=== PATIENT | male | born 1945 | race Caucasian/White ===

== ENCOUNTER 2019-04-26 | Day surgery (SDC) | payer OTHER | END 2019-04-26 12:03 | disposition home or self-care (01) | PROC: 0DJD8ZZ Inspection of Lower Intestinal Tract, Via Natural or Artificial Opening Endoscopic (ICD-10-PCS; principal; 2019-04-26) | DX: Z12.11 Encounter for screening for malignant neoplasm of colon (principal); K64.8 Other hemorrhoids; I10 Essential (primary) hypertension; Z86.010 Personal history of colon polyps; F17.290 Nicotine dependence, other tobacco product, uncomplicated | CPT/HCPCS: 45378; J3010; J7120 ==

== ENCOUNTER 2019-10-22 09:55 | Outpatient (CLI) | payer OTHER ==
--- NOTE | 2019-10-23 09:10 | CT Report ---
Reason: PERSONAL HISTORY NICOTINE DEPENDENCE Procedure Date: 10/22/2019 Accession Number: [id number] / [id number] Procedure: CT - CHEST WO CPT Code: Final Report FULL RESULT: EXAM CT LUNG SCREEN EXAM DATE: 10/22/2019 10:24 AM. HISTORY: 74-year-old patient with [id number] smoking history. Currently smoking: No. Years since quitting: Less than 1. COMPARISON: None. TECHNIQUE: CT examination of the entire thorax without contrast was performed. Thin section coronal, axial, sagittal and MIP axial images were obtained. In accordance with CT protocol optimization, one or more of the following dose reduction techniques were utilized for this exam: automated exposure control, adjustment of mA and/or KV based on patient size, or use of iterative reconstructive technique. FINDINGS: Nodules: Right upper lobe: None. Right middle lobe: None. Right lower lobe: 3 mm nodule image 174 series 4. Left upper lobe: None. Left lower lobe: 3 mm nodule image 179. Emphysema: No significant emphysema. Pleura: Unremarkable. Aorta: Mildly calcified. Mediastinum: Unremarkable. Coronary calcifications: Mild. Other pulmonary findings: Bilateral lower lobe predominant bronchiectasis with associated linear consolidative changes, scarring favored, less likely subsegmental atelectasis. Other extrapulmonary findings: Right renal cyst. IMPRESSION: Lung-RADS ASSESSMENT CATEGORY: 2 - benign appearance or behavior. Probability of malignancy: Less than 1%. RECOMMENDATION: Continue annual screening. RADIA
--- NOTE | 2019-10-23 11:00 | Ultrasound Report ---
Reason: PERSONAL HISTORY NICOTINE DEPENDENCE Procedure Date: 10/22/2019 Accession Number: [id number] / [id number] Procedure: US - Aorta Screening CPT Code: Final Report FULL RESULT: EXAM: AORTIC DOPPLER ULTRASOUND EXAM DATE: 10/22/2019 10:59 AM. CLINICAL HISTORY: Personal history nicotine dependence. COMPARISON: None. TECHNIQUE: Real-time sonographic imaging of retroperitoneal vascular structures, including color-flow, Doppler flow and spectral analysis was performed by the mate chief. Multiple pharmaceutical specialty representative static images were saved for review. FINDINGS: Aorta: The abdominal aorta was adequately visualized. No evidence for abdominal aortic aneurysm. Aorta: Proximal: Sagittal AP 2.7 cm. Mid: Transverse 2.1 x 2.3 cm. Distal: Transverse 1.9 x 2.0 cm. Caliber: WNL: Yes. Plaque visualized: Yes. Iliacs: Right Iliac: Transverse 1.3 x 1.2 cm. Left Iliac: Transverse 1.2 x 1.3 cm. Iliac Vessels: The visualized proximal common iliac arteries are normal in caliber. Other: None. IMPRESSION: Normal. No abdominal aortic aneurysm. RADIA
== END 2019-10-22 09:56 | disposition home or self-care (01) ==
LOC: DI 09:55
PROVIDERS: ATTEND Physician Assistant
DX: Z12.2 Encounter for screening for malignant neoplasm of respiratory organs (principal); Z13.6 Encounter for screening for cardiovascular disorders; Z87.891 Personal history of nicotine dependence
CPT/HCPCS: 71250; 76706

== ENCOUNTER 2021-09-11 15:13 | Emergency (ER) | payer OTHER ==
--- NOTE | 2021-09-11 16:06 | XRAY Report ---
PROCEDURE: Knee 4 View LT INDICATIONS: Trauma TECHNIQUE: 3 views of the left knee(s) were acquired. COMPARISON: None. FINDINGS: Bones: No fractures or dislocations. No suspicious bony lesions. Moderate medial and mild lateral j oint space narrowing. Soft tissues: Small joint effusion. No suspicious soft tissue calcifications. IMPRESSION: Moderate joint space narrowing and small joint effusion noted. No fracture or malalignme nt. Reviewed by: Juan Joseph MD on 09/11/2021 3:04 PM [place] Approved by: Juan Joseph MD on 09/11/2021 3:04 PM [place] Station ID: [id number]
--- NOTE | 2021-09-11 16:27 | ED Physician Documentation ---
PD HPI LOWER EXT INJURY - Stated complaint Stated Complaint: L KNEE PX - Chief complaint Chief Complaint: Ext Problem - History obtained from History obtained from: Patient - History of Present Illness PD HPI LOW EXT INJURY LOCATION: Left, Knee Type of injury: No: Fall, Twist Where injury occurred: Home Timing - onset: How many weeks ago (1) Timing - duration: Weeks (1) Timing - details: Gradual onset, Still present Worsened by: Moving, Palpating Associated symptoms: Swelling, Discolored (redness). No: Weakness, Numbness Contributing factors: No: Anticoagulated, Prior ortho surgery Similar symptoms before: Has not had sx before (has had gout in toe and foot, but not in the knee previously.) Recently seen: Not recently seen Review of Systems Constitutional: denies: Fever, Chills Skin: denies: Rash, Lesions, Abrasion (s), Laceration (s) PD PAST MEDICAL HISTORY - Past Medical History Cardiovascular: Hypertension Respiratory: None Endocrine/Autoimmune: None GI: None : Benign prostate hypertrophy HEENT: None Psych: None Musculoskeletal: None Derm: None - Past Surgical History General: Colonoscopy - Present Medications Home Medications: Ambulatory Orders Medication Instructions Recorded Confirmed Chlorthalidone 25 mg PO DAILY 04/25/19 04/26/19 Tamsulosin [Flomax] 0.4 mg PO DAILY 04/25/19 04/25/19 lisinopriL [Lisinopril] 10 mg PO DAILY 04/25/19 04/26/19 Colchicine 0.6 mg PO Q4H PRN #10 tablet 09/11/21 dexAMETHasone [Decadron] 4 mg PO DAILY #5 tablet 09/11/21 oxyCODONE [Roxicodone] 5 mg PO Q6H PRN #10 tablet 09/11/21 - Allergies Allergies/Adverse Reactions: Allergies Allergy/AdvReac Type Severity Reaction Status Date / Time No Known Drug Allergies Allergy Verified 09/11/21 15:28 PD ED PE NORMAL - Vitals Vital signs reviewed: Yes - General General: Alert and oriented X 3, No acute distress, Well developed/nourished - Derm Derm: Normal color, Warm and dry - Extremities Extremities: Other (left knee with redness and mild swelling without effusion anteriorly. No joint effusion. No skin sores. Seems c/w gout or prepatellar bursitis (though no effusion). ) - Neuro Neuro: No motor deficit, No sensory deficit Results - Vitals Vitals: Oxygen O2 Source Room air - Rads (name of study) right knee Radiology: Prelim report reviewed (no fractures nor acute process. ), See rad report PD MEDICAL DECISION MAKING - ED course Complexity details: reviewed results, considered differential (likely gout of the knee. consider prepatellar bursitis, but no effusion. ), d/w patient Departure - Departure Disposition: 01 Home, Self Care Clinical Impression: Acute gout Qualifiers: Gout site: knee Gout etiology: unspecified cause Laterality: left Qualified Code(s): M10.9 - Gout, unspecified Knee pain Qualifiers: Chronicity: acute Laterality: left Qualified Code(s): M25.562 - Pain in left knee Condition: Stable Record reviewed to determine appropriate education?: Yes Instructions: ED Arthritis Gout Follow-Up: Tylor Davis DO [Provider Admit Priv/Credential] - Prescriptions: Colchicine 0.6 mg PO Q4H PRN #10 tablet PRN Reason: Pain dexAMETHasone [Decadron] 4 mg PO DAILY #5 tablet oxyCODONE [Roxicodone] 5 mg PO Q6H PRN #10 tablet PRN Reason: Pain Comments: This looks and sounds most likely to be gout in the knee. Alternative of prepatellar bursitis would be treated similarly with anti-inflammatories and pain meds. We can go with the colchicine tablet 1 every 3-4 hours up to 4 tablets today into tomorrow. You could then use it twice daily for a few days as well if needed. You can also use dexamethasone steroid anti-inflammatory which is similar to prednisone that you had heard of. This daily for a few days until better as well. To that add Tylenol every 4-6 hours for pain or oxycodone as needed for worse pain. I would anticipate improvement over the next couple of days and resolution by 3 to 4 days. Recheck if not better in that timeframe. I transmitted your prescriptions to [facility] pharmacy in [place]. I am prescribing a short course of narcotic pain medication for you. These are potentially dangerous and addictive medications that should be used carefully. These medications may constipate you. Take an aesc-kpk-[id number] stool softener such as docusate twice daily with plenty of water while taking these medications. If you go 24 hours without a bowel movement, take [id number] MiraLAX, per package instructions. Do not drink or drive while taking these medications. If you received narcotic or sedating medications while in the emergency department do not drive for 24 hours. Store this medication in a safe, secure place and out of reach of children. It is a violation of federal law to give or sell this medication to another person or to use in a manner other than prescribed. The ED will not refill narcotic prescriptions, including prescriptions lost or stolen. You can dispose of unwanted medications at the [facility]'s office or at several pharmacies such as [facility]. Discharge Date/Time: 09/11/21 17:39
[2021-09-11] MEDS ORDERED: CHERRY SYRUP 10 ML UDC PO ONE (16:55)
[2021-09-11] MEDS ORDERED: COLCHICINE 0.6 MG TABLET PO STA (16:55)
[2021-09-11] MEDS ORDERED: DEXAMETHASONE 10 MG/ML VIAL PO STA (16:55)
[2021-09-11] MEDS ORDERED: ACETAMINOPHEN 325 MG TABLET PO STA (16:55)
[2021-09-11] MEDS ORDERED: oxyCODONE 5 MG TABLET PO STA (16:56)
[2021-09-11 17:34] VITALS: BP 160/83
== END 2021-09-11 17:39 | disposition home or self-care (01) ==
LOC: ED 15:13
DX: M10.062 Idiopathic gout, left knee (principal); I10 Essential (primary) hypertension
CPT/HCPCS: 73564; 99283; A9270

== ENCOUNTER 2022-09-06 11:47 | Emergency (ER) | payer OTHER ==
[2022-09-06 14:44] LABS: CALCIUM 8.9 mg/dL (8.5-10.3); CREATININE 1.3 mg/dL (0.6-1.2)
[2022-09-06 16:14] VITALS: BP 142/73
--- NOTE | 2022-09-06 17:51 | ED Physician Documentation ---
History of Present Illness - Stated complaint Stated Complaint: CHEST TIGHT,SORE THROAT - Chief complaint Chief Complaint: Resp - History obtained from History obtained from: Patient - History of Present Illness Timing: How many days ago (2) Pain level max: 3 Pain level now: 3 - Additonal information Additional information: 77-year-old male presents to the emergency department stating he had a positive COVID test 2 days ago. He states continued cough, sore throat. Has not taken anything for this. No nausea or vomiting. No rash. Nothing makes it better or worse. He is fully vaccinated including boosters. He is interested in discussing Paxlovid. Review of Systems Constitutional: denies: Fever, Chills Cardiac: denies: Chest pain / pressure, Palpitations Respiratory: denies: Cough GI: denies: Nausea, Vomiting, Diarrhea Skin: denies: Rash Musculoskeletal: denies: Neck pain, Back pain Neurologic: denies: Headache PD PAST MEDICAL HISTORY - Past Medical History Cardiovascular: Hypertension Respiratory: None Endocrine/Autoimmune: None GI: None : Benign prostate hypertrophy HEENT: None Psych: None Musculoskeletal: None Derm: None - Past Surgical History General: Colonoscopy - Present Medications Home Medications: Ambulatory Orders Medication Instructions Recorded Confirmed Chlorthalidone 25 mg PO DAILY 04/25/19 04/26/19 Tamsulosin [Flomax] 0.4 mg PO DAILY 04/25/19 04/25/19 lisinopriL [Lisinopril] 10 mg PO DAILY 04/25/19 04/26/19 Colchicine 0.6 mg PO Q4H PRN #10 tablet 09/11/21 dexAMETHasone [Decadron] 4 mg PO DAILY #5 tablet 09/11/21 oxyCODONE [Roxicodone] 5 mg PO Q6H PRN #10 tablet 09/11/21 - Allergies Allergies/Adverse Reactions: Allergies Allergy/AdvReac Type Severity Reaction Status Date / Time No Known Drug Allergies Allergy Verified 09/06/22 12:19 PD ED PE NORMAL - Vitals Vital signs reviewed: Yes - General General: Alert and oriented X 3, No acute distress - HEENT HEENT: Ears normal, Moist mucous membranes, Pharynx benign, Dentition benign - Neck Neck: Supple, no meningeal sign - Cardiac Cardiac: RRR, Strong equal pulses - Respiratory Respiratory: No respiratory distress, Clear bilaterally - Abdomen Abdomen: Soft, Non tender, Non distended - Derm Derm: Warm and dry, No rash - Extremities Extremities: No edema - Neuro Neuro: Alert and oriented X 3 - Psych Psych: Normal mood, Normal affect Results - Vitals Vitals: Vital Signs - 24 hr 09/06/22 09/06/22 12:14 16:13 Temperature 36.3 C L 37.0 C Heart Rate 80 77 Respiratory 24 16 Rate Blood Pressure 116/67 142/73 H O2 Saturation 96 97 Oxygen O2 Source Room air - Labs Labs: Laboratory Tests 09/06/22 14:25 Sodium 138 Potassium 4.0 Chloride 102 Carbon Dioxide 26 Anion Gap 10.0 BUN 18 Creatinine 1.3 H Estimated GFR (MDRD) 54 L Glucose 107 H Calcium 8.9 PD MEDICAL DECISION MAKING - ED course Complexity details: reviewed results, re-evaluated patient, considered differential, d/w patient ED course: Patient is well-appearing, nontoxic. Afebrile. No hypoxia. No respiratory distress. He is fully vaccinated and boosted. Does not have any history of lung issues. Other than his age does not have any significant risk factors for progression to hospitalization. We did discuss Paxlovid, risks and benefits. He declines Paxlovid at this time. I think this is reasonable in an otherwise healthy patient, besides hypertension. Patient counseled regarding signs and symptoms for which I believe and urgent re-evaluation would be necessary. Patient with good understanding of and agreement to plan and is comfortable going home at this time This document was made in part using voice recognition software. While efforts are made to proofread this document, sound alike and grammatical errors may occur. Departure - Departure Disposition: 01 Home, Self Care Clinical Impression: COVID Condition: Good Instructions: ED Viral Syndrome Follow-Up: RAISA GUZMAN PA-C [Primary Care Provider] - As Needed Comments: This should improve over the next few days. Please return if you worsen. Drink plenty of fluids at home. You can use cough medication, Tylenol and Motrin as needed. Discharge Date/Time: 09/06/22 18:57
== END 2022-09-06 18:57 | disposition home or self-care (01) ==
LOC: ED 11:47
DX: U07.1 COVID-19 (principal)
CPT/HCPCS: 36415; 80048; 99282; 99283